=== PATIENT | male | born 1985 | race Caucasian/White ===

== ENCOUNTER 2017-02-14 12:00 | Emergency (ER) | payer SELFPAY ==
[~2017-02-14] VITALS: Ht 170.2 cm; Wt 83.0 kg
[2017-02-14 12:00] VITALS: Ht 170.2 cm; Wt 83.0 kg
--- OUTSIDE RECORDS SUMMARY | 2017-02-14 12:04 | XMS REPORT ---
Author Author Padma Acosta [facility] eClinicalWorks Address Unknown Phone Unavailable Care Team Providers Care Inspector Plug Seam Name Role Phone Padma Acosta Unavailable Allergies No Known Allergies Problems Problem Type Condition ICD-9 Code Onset Dates Condition Status Assessment Encounter for therapeutic drug monitoring V58.83 Active Assessment Depressive disorder, not elsewhere classified 311 Active Problem Depressive disorder, not elsewhere classified 311 Active Medications No Known Medications Procedures Procedure Coding System Code Date COMPLETE CBC W/AUTO DIFF WBC CPT-4 24774 Aug 01, 2014 COMPREHENSIVE METABOLIC PANEL CPT-4 90017 Aug 01, 2014 TSH CPT-4 65327 Aug 01, 2014 OFFICE 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
--- OUTSIDE RECORDS SUMMARY | 2017-02-14 12:04 | XMS REPORT ---
Author Author Asmita Navarro [facility] eClinicalWorks Address Unknown Phone Unavailable Care Team Providers Care Signing Agent Name Role Phone Asmita Navarro CP Unavailable Allergies No Known Allergies Problems Problem Type Condition ICD-9 Code Onset Dates Condition Status Problem Depressive disorder, not elsewhere classified 311 Active Assessment Major depressive disorder, recurrent episode, moderate 296.32 Active Problem Major depressive disorder, recurrent episode, moderate 296.32 Active Medications No Known Medications Procedures Procedure Coding System Code Date Health and behavior assessment, 15 min ea. CPT-4 62612 Aug 02, 2014 Vital Signs Date/Time: Aug 01, 2014 Height 68 inches Weight 192 lbs Temperature 98.5 F Blood Pressure Diastolic 72 mm Hg Blood Pressure Systolic 128 mm Hg Cardiac Monitoring Heart Rate 82 Beats per Minute BMI 29.19 Index Respiratory Rate 16 per Minute Results No Known Results Summary Purpose eClinicalWorks Submission
--- NOTE | 2017-02-14 12:13 | ERPDOC ---
Departure Disposition Decision Date: February 14, 2017 Disposition Decision Time: 12:50 Disposition: 01 DISCHARGED HOME, SELF-CARE Impression Impression Impression: Primary Impression: Sprain Severity: Moderate Condition: Stable Seen By: Mid-level only Patient Instructions: Foot Sprain (ED) Problems/Meds/Labs Reviewed?: Yes Medications reviewed and manag: Yes Additional Instructions: Ice and elevate the foot. Xrays today are negative for fracture. If this is not improving in the next 7 days then please follow up with your primary care provider. Follow up care ordered?: Yes Mental Status: Alert HPI General Chief Complaint: Lower Extremity Injury Stated Complaint: RT FOOT INJ Time Seen by Provider: 12:04 Source: patient Exam Limitations: no limitations HPI Foot/Ankle Initial Comments Yesterday he was chasing his dog through the house and he twisted the right foot. He has pain in the mid foot region with swelling and bruising. No history of injury in the past. Has been taking OTC medications but the pain is still present today. Wanted to get his foot checked out. Occurred At: home Onset: Rapid Duration: 12-24 hrs Severity: moderate Location: right: foot Method of Injury: twisted Associated Symptoms: bruising, pain with extension, pain with flexion, pain with standing, swelling, DENIES: numbness, pallor, red streaks, redness, weakness Allergies: Coded Allergies: No Known Drug Allergies (Unverified Allergy, Unknown, 02/14/17) Past History Past Medical History Pt denies signifigant PMH Surgical History Denies Surgeries Family History Family PMH: FOUND: DC, cancer, diabetes, hypercholesterolemia, hypertension Social History Smoking Status: Never smoker Substance Use Type: does not use Alcohol Intake: none Review of Systems Constitutional Constitutional: DENIES: chills, dizziness, fatigue, fever, weakness Musculoskeletal General: joint pain (right mid foot), joint swelling, pain (right foot), tenderness (right mid foot), DENIES: weakness Integumentary Skin: color change (bruising and swelling to the right mid foot), DENIES: rash Neurological General: DENIES: numbness, tingling Exam General General Nourishment: well nourished, well developed, appears stated age, no acute distress, adult General Body Habitus: well groomed Vital Signs: RN Vital Signs have been reviewed: Yes [employer] Foot/Ankle Foot/Ankle : Leg: Right Leg: NOT FOUND: atrophy, contusion, deformity, discoloration, edema, numbness, swelling, tender, weakness Ankle: achilles tendon insertion, ecchymosis, swelling, tender mid foot, NOT FOUND: anterior drawer sign, decreased ROM, deformity, foot drop, numbness, tender lat. foot, tender lat. malleolus, tender med. malleolus, weakness Foot: discoloration, swelling, NOT FOUND: atrophy, deformity, numbness, tender 1st MTP joint, tender plantar fascia Toes: cap refill <2 sec ea toe, NOT FOUND: decreased ROM, deformity, ecchymosis, erythema, nail avulsion, subungual hematoma Dorsalis Pedis Pulse: 2+ Neurologic RN Documented GCS Eye Opening: Verbal: Motor: Total: Differential Diagnoses Considering: Contusion, Dislocation, Fracture, Sprain, Strain Progress Results/Orders Orders Procedure Category Date Status Time Foot Right 3 Views RAD 02/14/17 Taken Progress Progress Xray today is negative for fracture. Will go ahead and let him go home. Will have him ice and elevate the foot as needed to help with swelling. FU with PCP if any further concerns. Xray Xray : Reason for Exam: Right foot pain Xray: Foot R Interpretation: Normal BRENNON MONTEMAYOR APRN February 14, 2017 12:13
--- NOTE | 2017-02-14 12:30 | NUR ---
XRAY XRAY IN ROOM PORTABLE W/ PT.
[2017-02-14 13:14] VITALS: BP 132/78; PULSE 88; RESP 20; TEMP 98.3; O2SAT 98
--- NOTE | 2017-02-14 13:14 | NUR ---
DISCHARGE PT GIVEN INSTRUCTION FOR FOOT SPRAIN W/ ICE PACK AND WORK NOTE, PT VERBALIZED UNDERSTANDING OF CONTENT W/ FOLLOWUP W/ PCP IF NEEDED AND SIGNED FORM, PT LEFT ER IN WHEELCHAIR DUE DISTANCE AND CONT PAIN AND AMBULATORY TO P.O.V. W/O A CHANGE ALERT AND VS CHARTED AND NO ACUTE DISTRESS.
--- NOTE | 2017-02-15 08:10 | DI ---
Indication: ITS.REASON: right foot injury PROCEDURE: FOOT RIGHT 3 VIEWS: Encounter: Initial Comparison: January 19, 2011 Findings: There is no acute fracture, dislocation or malalignment identified. Impression: No acute osseous abnormality. .
== END 2017-02-14 13:14 | disposition home or self-care (01) ==
LOC: ED 12:00
DX: S93.601A Unspecified sprain of right foot, initial encounter (principal); X50.1XXA Overexertion from prolonged static or awkward postures, initial encounter; Y93.02 Activity, running; Y92.009 Unspecified place in unspecified non-institutional (private) residence as the place of occurrence of the external cause; Y99.8 Other external cause status